=== PATIENT | female | born 1950 | race Caucasian/White ===

== ENCOUNTER 2020-09-21 09:06 | Inpatient (IN) ==
[2020-09-21] MEDS ORDERED: HEPARIN 5,000 UNIT/1 ML VIAL IV ONE (09:20)
[2020-09-21] MEDS ORDERED: ASPIRIN 325 MG TABLET PO STA (09:20)
[2020-09-21] MEDS ORDERED: HEPARIN 5,000 UNIT/1 ML VIAL ONE (09:22)
[2020-09-21] MEDS ORDERED: ASPIRIN 325 MG TABLET ONE (09:22)
[2020-09-21] MEDS ORDERED: HEPARIN 5,000 UNIT/1 ML VIAL IV STA (09:23)
[2020-09-21] MEDS: SODIUM CHLORIDE 0.9% 1,000 ML IV SCH ×2 (09:24→18:25)
[2020-09-21] MEDS ORDERED: MAGNESIUM SULF RIDER 4 GM in PREMIX 1 EACH IV PRN (09:32)
[2020-09-21] MEDS ORDERED: MAGNESIUM SULF RIDER 2 GM in PREMIX 1 EACH IV PRN (09:32)
[2020-09-21] MEDS ORDERED: ONDANSETRON 4 MG/2 ML VIAL IV PRN (09:32)
[2020-09-21] MEDS ORDERED: DOCUSATE SODIUM 100 MG CAPSULE PO PRN (09:32)
[2020-09-21] MEDS ORDERED: diphenhydrAMINE CAP 25 MG CAPSULE PO PRN (09:32)
[2020-09-21] MEDS ORDERED: guaiFENesin/DM ER 600-30 MG TABLET PO PRN (09:32)
[2020-09-21] MEDS ORDERED: PROMETHAZINE 25 MG TABLET PO PRN (09:32)
[2020-09-21] MEDS ORDERED: ZALEPLON 5 MG CAPSULE PO PRN (09:32)
[2020-09-21] MEDS ORDERED: POTASSIUM CHLORIDE 20 MEQ TABLET PO PRN (09:32)
[2020-09-21] MEDS ORDERED: ACETAMINOPHEN 325 MG TABLET PO PRN (09:32)
[2020-09-21] MEDS ORDERED: ALUMINUM/MAGNES/SIMETH MAX STR 30 ML UDCUP PO PRN (09:32)
[2020-09-21] MEDS ORDERED: hydrALAZINE 20 MG/1 ML VIAL IV PRN (09:32)
[2020-09-21] MEDS ORDERED: MORPHINE 4 MG/1 ML VIAL IV PRN (09:32)
[2020-09-21 09:33] LABS: Basophils # 0.1 10*3/uL (0.0-0.2); Basophils % 0.4 % (0.0-0.8); Eosinophils # 0.1 10*3/uL (0.0-0.87); Eosinophils % 0.5 % (0.00-10.9); Hematocrit 40.9 VOL% (35.7-47.0); Immature Granulocytes % 0.5 %; Immature Granulocytes Absolute 0.06 #; Lymphocytes # 1.8 10*3/uL (1.4-4.0); Lymphocytes % 13.5 % (21.3-54.2); Mean Corpuscular HGB Conc 34.2 GM/DL (32-36); Mean Corpuscular Volume 96.9 FL (87-102); Mean Platelet Volume 12.6 FL (9.6-12.0); Monocytes % 4.1 % (1.7-12.7); Platelet Count 182 T/CUMM (130-400); Red Blood Count 4.22 MC/CUMM (3.8-5.5); Red Cell Distribution Width 12.3 % (9.3-17.3); White Blood Count 13.1 T/CUMM (4-12)
[2020-09-21] MEDS ORDERED: TIROFIBAN IV ONE (09:33)
[2020-09-21] MEDS: NITROGLYCERIN SL 0.4 MG TABLET SL PRN ×2 (09:34→09:43)
[2020-09-21] MEDS ORDERED: LIDOCAINE 1% 20 ML VIAL ONE (09:35)
[2020-09-21] MEDS ORDERED: TIROFIBAN 5,000 MCG/100 ML PREMIX IV ONE (09:36)
[2020-09-21] MEDS ORDERED: POTASSIUM CHLORIDE RIDER 10 MEQ in PREMIX 1 EACH IV PRN (09:37)
[2020-09-21] MEDS ORDERED: DIAZEPAM 5 MG TABLET PO ONE (09:37)
[2020-09-21] MEDS ORDERED: diphenhydrAMINE CAP 25 MG CAPSULE PO ONE (09:37)
[2020-09-21] MEDS: TIROFIBAN 5,000 MCG/100 ML PREMIX IV SCH ×2 (09:45→18:26)
[2020-09-21 09:46] LABS: Osmolality,Calculated 272.1 MOS/KG (273-304)
[2020-09-21 09:51] LABS: Band Neutrophils 1 % (0-10); Eosinophils 2 % (0-10); Hypochromasia 1+; Lymphocytes 14 % (20-55); Segmented Neutrophils 81 % (50-85); Total Cells Counted 100
[2020-09-21 09:52] LABS: Microcytosis Slight; Platelet Estimate Adequate
[2020-09-21 09:58] LABS: PT Patient Result 10.3 SECS (9.8-11.9); Partial Thromboplastin Time 25.1 SECS (23.9-33.8)
[2020-09-21] MEDS ORDERED: fentaNYL 100 MCG/2 ML VIAL ONE (09:59)
[2020-09-21] MEDS ORDERED: MIDAZOLAM 2 MG/2 ML VIAL ONE (09:59)
[2020-09-21 10:34] LABS: Albumin 4.1 G/DL (3.4-5.0); Bilirubin,Total 0.4 MG/DL (0.2-1.0); Total Protein 7.6 G/DL (6.4-8.3)
[2020-09-21 10:38] LABS: Troponin I 0.325 NG/ML (0.00-0.045)
[2020-09-21] MEDS ORDERED: TICAGRELOR 90 MG TABLET ONE (10:47)
[2020-09-21 10:49] LABS: VLDL CHOLESTEROL 17.8 MG/DL
[2020-09-21] MEDS ORDERED: FUROSEMIDE 20 MG/2 ML VIAL IV ONE (11:43)
[2020-09-21] MEDS ORDERED: FUROSEMIDE 40 MG/4 ML VIAL ONE (11:49)
[2020-09-21] MEDS ORDERED: ONDANSETRON 4 MG/2 ML VIAL ONE (12:05)
[2020-09-21 12:42] LABS: Bilirubin,Urine Negative (Negative); Blood, Urine Large mg/dL (Negative); Glucose,Urine (UA) Negative (Negative); Ketones,Urine Negative (Negative); Mucus,Urine Occasional /LPF (Occasional); Nitrite,Urine Negative (Negative); Protein,Urine Negative; RBC,Urine 3 /HPF (0-4); Urine Appearance CLEAR (Clear); Urine Color Yellow (Yellow); Urine Specific Gravity 1.057 (1.001-1.035); Urine Urobilinogen < 2.0 EU/DL (0.2-1.0); WBC,Urine 2 /HPF (0-6)
[2020-09-21 13:40] LABS: CKMB % 11.2 %
[2020-09-21 16:51] LABS: CKMB % 10.5 %
[2020-09-21 16:53] LABS: Troponin I > 200.000 NG/ML (0.00-0.045)
[2020-09-21] MEDS: TICAGRELOR 90 MG TABLET PO SCH (20:56)
[2020-09-21] MEDS: METHENAMINE HIPPURATE 1 GM TABLET PO SCH (20:56)
[2020-09-21] MEDS: METOPROLOL TARTRATE 50 MG TABLET PO SCH (20:56)
[2020-09-21] MEDS: ROSUVASTATIN 20 MG TABLET PO SCH (20:56)
[2020-09-21] MEDS ORDERED: METOPROLOL TARTRATE 25 MG TABLET PO SCH (21:00)
[2020-09-22] MEDS: TIROFIBAN 5,000 MCG/100 ML PREMIX IV SCH (02:22)
[2020-09-22 04:52] LABS: Basophils % 0.2 % (0.0-0.8); Hematocrit 34.7 VOL% (35.7-47.0); Hemoglobin 12.2 GM/DL (12.0-16.0); Immature Granulocytes % 0.2 %; Immature Granulocytes Absolute 0.03 #; Lymphocytes # 1.3 10*3/uL (1.4-4.0); Lymphocytes % 10.1 % (21.3-54.2); Mean Corpuscular HGB Conc 35.2 GM/DL (32-36); Mean Corpuscular Volume 95.1 FL (87-102); Mean Platelet Volume 12.2 FL (9.6-12.0); Monocytes % 8.4 % (1.7-12.7); Neutrophils % 81.1 % (38.7-73.9); Red Blood Count 3.65 MC/CUMM (3.8-5.5); Red Cell Distribution Width 12.3 % (9.3-17.3); White Blood Count 12.5 T/CUMM (4-12)
[2020-09-22 04:53] LABS: Platelet Count 106 T/CUMM (130-400)
[2020-09-22 05:17] LABS: CKMB % 5.8 %; Calcium 8.1 MG/DL (8.5-10.1); Osmolality,Calculated 263.7 MOS/KG (273-304)
[2020-09-22 05:34] LABS: Troponin I 85.5 NG/ML (0.00-0.045)
[2020-09-22] MEDS: LEVOTHYROXINE 75 MCG TABLET PO SCH (08:03)
[2020-09-22] MEDS: ASPIRIN EC 81 MG TABLET PO SCH (09:57)
[2020-09-22] MEDS: TICAGRELOR 90 MG TABLET PO SCH ×2 (09:57→20:42)
[2020-09-22] MEDS: PANTOPRAZOLE 40 MG TABLET PO SCH (09:57)
[2020-09-22] MEDS: CALCIUM (CARBONATE)/VITAMIN D 600 MG-400 UNIT TABLET PO SCH (09:57)
[2020-09-22] MEDS: METOPROLOL TARTRATE 50 MG TABLET PO SCH ×3 (09:57→20:42)
[2020-09-22] MEDS: LOSARTAN 25 MG TABLET PO SCH (09:58)
[2020-09-22] MEDS: METHENAMINE HIPPURATE 1 GM TABLET PO SCH ×2 (09:58→20:41)
[2020-09-22] MEDS: ROSUVASTATIN 20 MG TABLET PO SCH (20:42)
[2020-09-23 06:47] LABS: CKMB % 1.6 %; Calcium 8.4 MG/DL (8.5-10.1); Osmolality,Calculated 268.1 MOS/KG (273-304)
[2020-09-23 06:48] LABS: Troponin I 34.7 NG/ML (0.00-0.045)
[2020-09-23] MEDS: LEVOTHYROXINE 75 MCG TABLET PO SCH ×2 (07:27→09:13)
[2020-09-23] MEDS: METHENAMINE HIPPURATE 1 GM TABLET PO SCH ×2 (09:09→20:49)
[2020-09-23] MEDS: ASPIRIN EC 81 MG TABLET PO SCH (09:09)
[2020-09-23] MEDS: METOPROLOL TARTRATE 50 MG TABLET PO SCH ×2 (09:10→20:50)
[2020-09-23] MEDS: LOSARTAN 25 MG TABLET PO SCH (09:10)
[2020-09-23] MEDS: CALCIUM (CARBONATE)/VITAMIN D 600 MG-400 UNIT TABLET PO SCH (09:10)
[2020-09-23] MEDS: TICAGRELOR 90 MG TABLET PO SCH ×2 (09:10→20:50)
[2020-09-23] MEDS: PANTOPRAZOLE 40 MG TABLET PO SCH (09:10)
[2020-09-23] MEDS: ROSUVASTATIN 20 MG TABLET PO SCH (20:49)
[2020-09-24] MEDS: LEVOTHYROXINE 75 MCG TABLET PO SCH (07:24)
[2020-09-24 08:17] VITALS: BP 133/77
[2020-09-24 08:27] LABS: Basophils % 0.3 % (0.0-0.8); Eosinophils % 0.2 % (0.00-10.9); Hematocrit 34.6 VOL% (35.7-47.0); Hemoglobin 11.8 GM/DL (12.0-16.0); Immature Granulocytes % 0.5 %; Immature Granulocytes Absolute 0.05 #; Lymphocytes # 1.1 10*3/uL (1.4-4.0); Lymphocytes % 10.2 % (21.3-54.2); Mean Corpuscular HGB Conc 34.1 GM/DL (32-36); Mean Corpuscular Volume 96.9 FL (87-102); Mean Platelet Volume 13.4 FL (9.6-12.0); Monocytes % 8.3 % (1.7-12.7); Neutrophils % 80.5 % (38.7-73.9); Platelet Count 122 T/CUMM (130-400); Red Blood Count 3.57 MC/CUMM (3.8-5.5); Red Cell Distribution Width 12.3 % (9.3-17.3); White Blood Count 11.1 T/CUMM (4-12)
[2020-09-24 08:53] LABS: Blood Urea Nitrogen 12 MG/DL (7-18); Calcium 8.3 MG/DL (8.5-10.1); Estimated Glom Filtration Rate 80 ML/MIN; Glucose 103 MG/DL (74-106)
[2020-09-24] MEDS: ASPIRIN EC 81 MG TABLET PO SCH (09:02)
[2020-09-24] MEDS: TICAGRELOR 90 MG TABLET PO SCH (09:02)
[2020-09-24] MEDS: PANTOPRAZOLE 40 MG TABLET PO SCH (09:03)
[2020-09-24] MEDS: LOSARTAN 25 MG TABLET PO SCH (09:03)
[2020-09-24] MEDS: METOPROLOL TARTRATE 50 MG TABLET PO SCH (09:03)
[2020-09-24] MEDS: CALCIUM (CARBONATE)/VITAMIN D 600 MG-400 UNIT TABLET PO SCH (09:03)
[2020-09-24] MEDS: METHENAMINE HIPPURATE 1 GM TABLET PO SCH (09:03)
[2020-09-24] MEDS ORDERED: RIVAROXABAN 20 MG TABLET PO SCH (17:00)
== END 2020-09-24 12:09 | disposition home or self-care (01) | DRG 247 ==
LOC: N.ED 09:06 → N.EDINP 09:06 → N.ICU 09:47 → OBSVTOIN 10:28 → N.ICU 13:22 → N.TELEN 09-22 19:00
PROVIDERS: ADMIT Internal Medicine Cardiovascular Disease; ATTEND Internal Medicine Cardiovascular Disease
PROC: CLCCHCL (ICD-10-PCS; 2020-09-21 10:45)